=== PATIENT | male | born 1970 | race Asian ===

== ENCOUNTER 2024-02-01 02:31 | Inpatient (IN) | payer SELFPAY ==
[2024-02-01] VITALS (10 sets, daily range): BP systolic 96–136; BP diastolic 60–80; PULSE 93–121; RESP 16–26; TEMP 96.4–100.2; O2SAT 99
[~2024-02-01] VITALS: Ht 157.5 cm; Wt 53.0 kg
[~2024-02-01 02:31] MED LIST: ATOR10TA PO; FLUC100T64 PO; FOLI1TAB27 PO; HYDR-3964 PO; LISI2.5T14 PO; MULT-25 PO; PANT40TA54 PO; VITC500T PO; ZINC220C11 PO
[2024-02-01] MEDS: LORazepam 2 mg/ml vial IM ONE (02:55)
[2024-02-01] MEDS: haloperidol lactate 5mg/ml inj IM ONE (02:56)
[2024-02-01] MEDS: ceFAZolin 1gm IM kit IM ONE (02:58)
[2024-02-01] MEDS: TETanus/Pertussis (Acell)/Diphther VAC/PF (Tdap-Adult) 0.5ml syringe IMVAC ONE (03:01)
[2024-02-01 03:32] LABS: BASOPHILS # (AUTO) 0.1 X10'3 (0-0.2); MONOCYTES # (AUTO) 0.6 X10'3 (0-0.9)
[2024-02-01 03:34] LABS: BASOPHILS % (AUTO) 0.6 % (0-1); EOSINOPHILS % (AUTO) 0.2 % (0-6); LYMPHOCYTES # (AUTO) 2.3 X10'3 (1.1-4.8); LYMPHOCYTES % (AUTO) 19.3 % (21-51); MEAN CORPUSCULAR HEMOGLOBIN 19.4 PG (27.0-31.0); MEAN CORPUSCULAR VOLUME 62.5 FL (78-98); MONOCYTES % (AUTO) 5.4 % (2-12); NEUTROPHILS % (AUTO) 74.5 % (42-75); RED BLOOD COUNT 2.87 X10'6 (4.70-6.10); RED CELL DISTRIBUTION WIDTH 25.4 % (11.5-14.5); WHITE BLOOD COUNT 12.1 X10'3 (4.5-11.0)
[2024-02-01 04:04] LABS: HEMOGLOBIN 5.6 g/dl (14.0-17.9)
[2024-02-01 04:05] LABS: PLATELET COUNT 1275 X10'3 (140-440)
[2024-02-01 04:20] LABS: ALBUMIN 1.8 G/DL (3.4-5.0); ANION GAP 11 (8-16); BLOOD UREA NITROGEN 29 MG/DL (7-18); BUN/CREATININE RATIO 14.2 (10.0-20.0); CALCIUM 8.2 MG/DL (8.5-10.1); CHLORIDE 95 MMOL/L (99-107); CREATININE 2.04 MG/DL (0.60-1.10); ETHANOL < 10 MG/DL (<10); GLUCOSE 163 MG/DL (70-104); POTASSIUM 4.2 MMOL/L (3.5-5.1); SODIUM 129 MMOL/L (135-145); THYROID STIMULATING HORMONE 1.95 ulU/ml (0.34-4.50); TOTAL CARBON DIOXIDE 23.2 MMOL/L (24-32); eCRCL 31 ML/MIN; eGFR 34 ML/MIN
[2024-02-01 05:09] LABS: BILIRUBIN,URINE NEGATIVE (Neg); CLARITY,URINE SLIGHTLY CLOUDY (Clear); COLOR,URINE YELLOW (Yellow); GLUCOSE, URINE NEGATIVE (Neg); KETONES,URINE TRACE mg/dl (Neg); LEUKOCYTE ESTERASE ,URINE NEGATIVE (Neg); NITRITES, URINE NEGATIVE (Neg); OCCULT BLOOD,URINE NEGATIVE (Neg); PH,URINE 5.5 (4.8-8.0); PROTEIN,URINE NEGATIVE (Neg); UROBILINOGEN,URINE 0.2 E.U/dL (0.2-1.0)
[2024-02-01] MEDS: VANCOMYCIN 1,500MG inj. 1,500 MG in normal saline 500ml IV soln 300 ML IV SCH (05:10)
[2024-02-01] MEDS: LidoCAINE 2% Topical Jelly 11mL syringe (UROJET) TOP ONE (05:11)
[2024-02-01 05:14] LABS: UA COLLECTION TYPE FOLEY CATH
[2024-02-01 05:15] LABS: HYALINE CASTS 0-3 /LPF (NEGATIVE); SQUAMOUS EPITHELIAL CELL,UR FEW /LPF (FEW)
[2024-02-01 05:16] LABS: BACTERIA,URINE 2+ /HPF (Neg); RBC,URINE NONE SEEN /HPF (0-2); WBC,URINE 0-4 /HPF (0-4)
[2024-02-01 05:25] LABS: URINE AMPHETAMINE SCREEN POSITIVE (Neg); URINE BARBITUATE SCREEN NEGATIVE (Neg); URINE BENZODIAZEPINES SCREEN NEGATIVE (Neg); URINE CANNABINOID SCREEN NEGATIVE (Neg); URINE COCAINE SCREEN NEGATIVE (Neg); URINE METHADONE SCREEN NEGATIVE (Neg); URINE OPIATE SCREEN NEGATIVE (Neg); URINE PHENCYCLIDINE SCREEN NEGATIVE (Neg)
[2024-02-01] MEDS ORDERED: magnesium 4gm in 100ml NS 100 ML IV PRN (08:50)
[2024-02-01] MEDS ORDERED: magnesium hydroxide 30ml (MOM) UD suspension PO PRN (08:50)
[2024-02-01] MEDS ORDERED: ondansetron/PF 4mg/2ml inj IV PRN (08:50)
[2024-02-01] MEDS ORDERED: morphine 2 MG/ML inj. syringe IV PRN ×2 (08:50)
[2024-02-01] MEDS ORDERED: potassium Cl 20 mEq SR tablet PO PRN ×2 (08:50)
[2024-02-01] MEDS ORDERED: mag hydrox/Alum hydrox/simeth 30ml oral suspension PO PRN (08:50)
[2024-02-01] MEDS ORDERED: acetaminophen 325mg tablet PO PRN (08:50)
[2024-02-01] MEDS ORDERED: potassium Cl 40MEQ/1/2NS 520ml 520 ML IV PRN (08:50)
[2024-02-01] MEDS ORDERED: magnesium Cl slow-release 64mg tablet PO PRN (08:50)
[2024-02-01 11:13] LABS: MAGNESIUM 1.9 MG/DL (1.5-2.4)
[2024-02-01 13:41] LABS: HEMATOCRIT 23.5 % (42.0-52.0); HEMOGLOBIN 7.6 g/dl (14.0-17.9); MEAN CORPUSCULAR HEMOGLOBIN 22.1 PG (27.0-31.0); MEAN CORPUSCULAR HGB CONC 32.3 g/dL (33.0-36.5); MEAN CORPUSCULAR VOLUME 68.3 FL (78-98); MEAN PLATELET VOLUME 5.8 FL (7.4-10.4); RED BLOOD COUNT 3.44 X10'6 (4.70-6.10); RED CELL DISTRIBUTION WIDTH 26.6 % (11.5-14.5); WHITE BLOOD COUNT 16.5 X10'3 (4.5-11.0)
[2024-02-01 13:47] LABS: PLATELET COUNT 1100 X10'3 (140-440)
[2024-02-01] MEDS ORDERED: dextrose 50%-water 50ml dispensing syringe IV PRN ×2 (15:40)
[2024-02-01] MEDS ORDERED: DEXTROSE 15 GM of carb/4 tabs (each vial/BOTTLE has 4 tablets) PO PRN ×2 (15:40)
[2024-02-01] MEDS ORDERED: INSULIN LISPRO 100 UNIT/ML INSULN.PEN MULTI-DOSE SQ SCH (15:40)
[2024-02-01] MEDS ORDERED: glucagon, human recombinant 1mg kit SUBCUT PRN (15:40)
[2024-02-01] MEDS: normal saline 1000ml 1,000 ML IV SCH (16:21)
[2024-02-01] MEDS: MESSAGE TO PHARMACY PO ONE (16:25)
[2024-02-01 19:18] LABS: HEMOGLOBIN A1C 9.8 % (4.5-6.2)
[2024-02-01 19:30] LABS: HEMOGLOBIN 7.2 g/dl (14.0-17.9); MEAN PLATELET VOLUME 5.9 FL (7.4-10.4)
[2024-02-01 19:31] LABS: HEMATOCRIT 22.6 % (42.0-52.0); MEAN CORPUSCULAR HEMOGLOBIN 21.5 PG (27.0-31.0); MEAN CORPUSCULAR HGB CONC 31.7 g/dL (33.0-36.5); MEAN CORPUSCULAR VOLUME 67.8 FL (78-98); RED BLOOD COUNT 3.33 X10'6 (4.70-6.10); WHITE BLOOD COUNT 17.1 X10'3 (4.5-11.0)
[2024-02-01 19:43] LABS: PLATELET COUNT 1183 X10'3 (140-440)
[2024-02-01] MEDS: K and/or MAG REPLACEMENT MC SCH (20:00)
[2024-02-01] MEDS: docusate sod 100mg capsule PO SCH (20:00)
[2024-02-01] MEDS: insulin glargine (Lantus) pen - multi-dose SQ SCH (22:19)
[2024-02-01 22:27] LABS: HEMOGLOBIN 7.3 g/dl (14.0-17.9); MEAN CORPUSCULAR VOLUME 67.4 FL (78-98); MEAN PLATELET VOLUME 5.9 FL (7.4-10.4)
[2024-02-01 22:28] LABS: HEMATOCRIT 22.4 % (42.0-52.0); MEAN CORPUSCULAR HEMOGLOBIN 21.9 PG (27.0-31.0); MEAN CORPUSCULAR HGB CONC 32.5 g/dL (33.0-36.5); RED BLOOD COUNT 3.32 X10'6 (4.70-6.10); RED CELL DISTRIBUTION WIDTH 25.8 % (11.5-14.5); WHITE BLOOD COUNT 15.3 X10'3 (4.5-11.0)
[2024-02-01 22:33] LABS: PLATELET COUNT 1108 X10'3 (140-440)
[2024-02-02] VITALS (7 sets, daily range): BP systolic 104–134; BP diastolic 58–92; PULSE 90–103; RESP 14–17; TEMP 97.4–98.7; O2SAT 99–100
[2024-02-02 08:51] LABS: BASOPHILS # (AUTO) 0.1 X10'3 (0-0.2); BASOPHILS % (AUTO) 0.4 % (0-1); RED CELL DISTRIBUTION WIDTH 26.1 % (11.5-14.5)
[2024-02-02 08:53] LABS: EOSINOPHILS # (AUTO) 0.1 X10'3 (0-0.9); EOSINOPHILS % (AUTO) 0.5 % (0-6); LYMPHOCYTES # (AUTO) 1.8 X10'3 (1.1-4.8); LYMPHOCYTES % (AUTO) 13.4 % (21-51); MEAN CORPUSCULAR HEMOGLOBIN 22.2 PG (27.0-31.0); MEAN CORPUSCULAR HGB CONC 32.6 g/dL (33.0-36.5); MEAN CORPUSCULAR VOLUME 68.1 FL (78-98); MEAN PLATELET VOLUME 5.8 FL (7.4-10.4); MONOCYTES # (AUTO) 0.8 X10'3 (0-0.9); MONOCYTES % (AUTO) 6.3 % (2-12); NEUTROPHILS # (AUTO) 10.6 X10'3 (1.8-7.7); NEUTROPHILS % (AUTO) 79.4 % (42-75); RED BLOOD COUNT 3.09 X10'6 (4.70-6.10); WHITE BLOOD COUNT 13.4 X10'3 (4.5-11.0)
[2024-02-02 09:07] LABS: ALANINE AMINOTRANSFERASE 14 U/L (12-78); ALBUMIN 1.3 G/DL (3.4-5.0); ALBUMIN/GLOBULIN RATIO 0.3 (1.1-1.5); ALKALINE PHOSPHATASE 68 IU/L (46-116); ASPARTATE AMINO TRANSFERASE 10 U/L (10-37); BILIRUBIN,TOTAL 0.5 MG/DL (0.1-1.0); BLOOD UREA NITROGEN 16 MG/DL (7-18); BUN/CREATININE RATIO 12.3 (10.0-20.0); CALCIUM 7.9 MG/DL (8.5-10.1); CHLORIDE 105 MMOL/L (99-107); GLUCOSE 133 MG/DL (70-104); MAGNESIUM 1.6 MG/DL (1.5-2.4); TOTAL PROTEIN 6.5 G/DL (6.4-8.2); eCRCL 49 ML/MIN; eGFR 58 ML/MIN
[2024-02-02 09:09] LABS: HEMOGLOBIN 6.9 g/dl (14.0-17.9); PLATELET COUNT 1017 X10'3 (140-440)
[2024-02-02 09:13] LABS: ANION GAP 7 (8-16); POTASSIUM 4.1 MMOL/L (3.5-5.1); SODIUM 136 MMOL/L (135-145)
[2024-02-02 09:43] LABS: PLATELET ESTIMATE INCREASED
[2024-02-02 09:44] LABS: HYPOCHROMASIA 1+; POLYCHROMASIA FEW
[2024-02-02 09:45] LABS: ANISOCYTOSIS 3+; MICROCYTOSIS 2+; SCHISTOCYTES FEW; TARGET CELLS FEW
[2024-02-02] MEDS: acetaminophen 325mg tablet PO PRN (10:02)
[2024-02-02 11:29] LABS: HEMATOCRIT 23.2 % (42.0-52.0); HEMOGLOBIN 7.2 g/dl (14.0-17.9); MEAN CORPUSCULAR HEMOGLOBIN 21.4 PG (27.0-31.0); MEAN CORPUSCULAR HGB CONC 31.2 g/dL (33.0-36.5); MEAN CORPUSCULAR VOLUME 68.4 FL (78-98); MEAN PLATELET VOLUME 5.7 FL (7.4-10.4); PLATELET COUNT 974 X10'3 (140-440); RED BLOOD COUNT 3.38 X10'6 (4.70-6.10); RED CELL DISTRIBUTION WIDTH 26.1 % (11.5-14.5); WHITE BLOOD COUNT 14.4 X10'3 (4.5-11.0)
[2024-02-02 11:44] LABS: APTT 37 SECONDS (22-32); INR 1.1 INR; PROTHROMBIN TIME 11.9 SECONDS (9.0-12.0)
[2024-02-02] MEDS ORDERED: METF-1203 PO (12:55)
[2024-02-02 14:54] LABS: HEMATOCRIT 26.1 % (42.0-52.0); HEMOGLOBIN 8.3 g/dl (14.0-17.9); MEAN CORPUSCULAR HEMOGLOBIN 22.6 PG (27.0-31.0); MEAN CORPUSCULAR HGB CONC 31.9 g/dL (33.0-36.5); MEAN CORPUSCULAR VOLUME 70.9 FL (78-98); MEAN PLATELET VOLUME 5.7 FL (7.4-10.4); PLATELET COUNT 985 X10'3 (140-440); RED BLOOD COUNT 3.68 X10'6 (4.70-6.10); RED CELL DISTRIBUTION WIDTH 27.6 % (11.5-14.5); WHITE BLOOD COUNT 13.6 X10'3 (4.5-11.0)
[2024-02-02 19:27] LABS: HEMOGLOBIN 8.8 g/dl (14.0-17.9); MEAN CORPUSCULAR HGB CONC 32.3 g/dL (33.0-36.5); MEAN PLATELET VOLUME 5.9 FL (7.4-10.4)
[2024-02-02 19:28] LABS: HEMATOCRIT 27.3 % (42.0-52.0); MEAN CORPUSCULAR HEMOGLOBIN 22.8 PG (27.0-31.0); MEAN CORPUSCULAR VOLUME 70.6 FL (78-98); RED BLOOD COUNT 3.86 X10'6 (4.70-6.10); RED CELL DISTRIBUTION WIDTH 26.5 % (11.5-14.5); WHITE BLOOD COUNT 15.4 X10'3 (4.5-11.0)
[2024-02-02 19:35] LABS: PLATELET COUNT 1134 X10'3 (140-440)
[2024-02-02 21:31] LABS: OCCULT BLOOD STOOL NEGATIVE (Neg)
[2024-02-02 23:17] LABS: HEMOGLOBIN 8.6 g/dl (14.0-17.9)
[2024-02-02 23:18] LABS: MEAN CORPUSCULAR HEMOGLOBIN 23.3 PG (27.0-31.0); MEAN CORPUSCULAR HGB CONC 33.1 g/dL (33.0-36.5); MEAN CORPUSCULAR VOLUME 70.3 FL (78-98); MEAN PLATELET VOLUME 6.1 FL (7.4-10.4); RED CELL DISTRIBUTION WIDTH 26.5 % (11.5-14.5); WHITE BLOOD COUNT 14.9 X10'3 (4.5-11.0)
[2024-02-02 23:33] LABS: PLATELET COUNT 1028 X10'3 (140-440)
[2024-02-03 06:00] VITALS: BP 95/52; PULSE 104; RESP 15; TEMP 98.1; O2SAT 100
[2024-02-03 06:50] LABS: BASOPHILS # (AUTO) 0.1 X10'3 (0-0.2); BASOPHILS % (AUTO) 0.5 % (0-1); EOSINOPHILS # (AUTO) 0.1 X10'3 (0-0.9); EOSINOPHILS % (AUTO) 0.9 % (0-6); HEMOGLOBIN 8.3 g/dl (14.0-17.9); MEAN PLATELET VOLUME 5.7 FL (7.4-10.4); MONOCYTES # (AUTO) 0.6 X10'3 (0-0.9); MONOCYTES % (AUTO) 4.2 % (2-12)
[2024-02-03 06:53] LABS: HEMATOCRIT 25.1 % (42.0-52.0); LYMPHOCYTES # (AUTO) 3.4 X10'3 (1.1-4.8); LYMPHOCYTES % (AUTO) 24.8 % (21-51); MEAN CORPUSCULAR HEMOGLOBIN 23.3 PG (27.0-31.0); MEAN CORPUSCULAR VOLUME 70.7 FL (78-98); NEUTROPHILS # (AUTO) 9.4 X10'3 (1.8-7.7); NEUTROPHILS % (AUTO) 69.6 % (42-75); RED BLOOD COUNT 3.55 X10'6 (4.70-6.10); RED CELL DISTRIBUTION WIDTH 26.5 % (11.5-14.5); WHITE BLOOD COUNT 13.5 X10'3 (4.5-11.0)
[2024-02-03 07:08] LABS: ALANINE AMINOTRANSFERASE 11 U/L (12-78); ALBUMIN 1.5 G/DL (3.4-5.0); ALBUMIN/GLOBULIN RATIO 0.3 (1.1-1.5); ALKALINE PHOSPHATASE 81 IU/L (46-116); ANION GAP 7 (8-16); ASPARTATE AMINO TRANSFERASE 14 U/L (10-37); BILIRUBIN,TOTAL 0.3 MG/DL (0.1-1.0); BLOOD UREA NITROGEN 13 MG/DL (7-18); BUN/CREATININE RATIO 11.4 (10.0-20.0); C-REACTIVE PROTEIN 7.96 MG/DL (0.0-0.5); CALCIUM 7.8 MG/DL (8.5-10.1); CHLORIDE 103 MMOL/L (99-107); CREATININE 1.14 MG/DL (0.60-1.10); GLUCOSE 150 MG/DL (70-104); POTASSIUM 4.5 MMOL/L (3.5-5.1); SODIUM 134 MMOL/L (135-145); TOTAL CARBON DIOXIDE 24.1 MMOL/L (24-32); TOTAL PROTEIN 7.1 G/DL (6.4-8.2); eCRCL 56 ML/MIN; eGFR 67 ML/MIN
[2024-02-03 07:26] LABS: PLATELET COUNT 1038 X10'3 (140-440)
[2024-02-03 07:45] VITALS: RESP 18; O2SAT 100
[2024-02-03 07:46] LABS: PLATELET ESTIMATE INCREASED
[2024-02-03 07:49] LABS: ANISOCYTOSIS 3+
[2024-02-03 07:50] LABS: HYPOCHROMASIA 2+; MICROCYTOSIS 1+
[2024-02-03 07:51] LABS: BURR CELLS FEW; POLYCHROMASIA FEW
[2024-02-03 07:53] LABS: SCHISTOCYTES FEW
[2024-02-03 07:54] LABS: TARGET CELLS FEW
[2024-02-03] MEDS: HYDROcodone/acetaminophen 5mg/325mg tablet PO PRN (07:56)
[2024-02-03 07:57] LABS: ACANTHOCYTES FEW
[2024-02-03 09:15] LABS: PROTHROMBIN TIME 11.2 SECONDS (9.0-12.0)
[2024-02-03 09:33] LABS: APTT 38 SECONDS (22-32)
[2024-02-03 10:00] VITALS: BP 118/80; PULSE 101; RESP 18; TEMP 98.3; O2SAT 99
[2024-02-03] MEDS: JUVEN Smoothie Arginine/Glut./Ca2+Bmb (Juven 19.3pkt) 240ml cup PO SCH (12:30)
[2024-02-03 19:29] VITALS: RESP 18; O2SAT 100
[2024-02-03 19:44] VITALS: BP 109/80; PULSE 98; RESP 18; TEMP 98.3; O2SAT 100
[2024-02-03 22:25] VITALS: BP 129/85; PULSE 108; RESP 16; TEMP 98.5; O2SAT 97
[2024-02-04 06:00] VITALS: BP 115/61; PULSE 95; RESP 16; TEMP 97.9; O2SAT 96
[2024-02-04 06:54] LABS: BASOPHILS # (AUTO) 0.1 X10'3 (0-0.2); LYMPHOCYTES # (AUTO) 3.2 X10'3 (1.1-4.8); MEAN CORPUSCULAR HGB CONC 32.2 g/dL (33.0-36.5)
[2024-02-04 06:58] LABS: BASOPHILS % (AUTO) 0.7 % (0-1); EOSINOPHILS # (AUTO) 0.2 X10'3 (0-0.9); EOSINOPHILS % (AUTO) 1.8 % (0-6); LYMPHOCYTES % (AUTO) 32.3 % (21-51); MEAN CORPUSCULAR HEMOGLOBIN 22.8 PG (27.0-31.0); MEAN CORPUSCULAR VOLUME 70.9 FL (78-98); MEAN PLATELET VOLUME 5.8 FL (7.4-10.4); MONOCYTES # (AUTO) 0.6 X10'3 (0-0.9); MONOCYTES % (AUTO) 5.7 % (2-12); NEUTROPHILS # (AUTO) 5.9 X10'3 (1.8-7.7); NEUTROPHILS % (AUTO) 59.5 % (42-75); RED BLOOD COUNT 3.52 X10'6 (4.70-6.10); RED CELL DISTRIBUTION WIDTH 26.4 % (11.5-14.5); WHITE BLOOD COUNT 9.9 X10'3 (4.5-11.0)
[2024-02-04 07:06] LABS: PLATELET COUNT 1030 X10'3 (140-440)
[2024-02-04 07:26] LABS: ALANINE AMINOTRANSFERASE 13 U/L (12-78); ALBUMIN 1.4 G/DL (3.4-5.0); ALBUMIN/GLOBULIN RATIO 0.3 (1.1-1.5); ALKALINE PHOSPHATASE 73 IU/L (46-116); ANION GAP 6 (8-16); ASPARTATE AMINO TRANSFERASE 16 U/L (10-37); BILIRUBIN,TOTAL 0.3 MG/DL (0.1-1.0); BLOOD UREA NITROGEN 19 MG/DL (7-18); CALCIUM 7.9 MG/DL (8.5-10.1); CHLORIDE 103 MMOL/L (99-107); GLUCOSE 138 MG/DL (70-104); MAGNESIUM 1.4 MG/DL (1.5-2.4); POTASSIUM 4.7 MMOL/L (3.5-5.1); SODIUM 132 MMOL/L (135-145); TOTAL CARBON DIOXIDE 22.9 MMOL/L (24-32); TOTAL PROTEIN 6.9 G/DL (6.4-8.2); eCRCL 63 ML/MIN; eGFR 78 ML/MIN
[2024-02-04 08:00] VITALS: RESP 16; O2SAT 96
[2024-02-04] MEDS: magnesium 2GM in 50ml NS 50 ML IV PRN (08:06)
[2024-02-04] MEDS: HYDROcodone/acetaminophen 10/325mg tab PO PRN (09:12)
[2024-02-04] MEDS: insulin Lispro (HumaLOG) vial - multi-dose SQ SCH (09:16)
[2024-02-04 10:00] VITALS: BP 118/80; PULSE 101; RESP 18; TEMP 98.3; O2SAT 99
[2024-02-04 20:00] VITALS: RESP 18; O2SAT 90
[2024-02-04 22:00] VITALS: BP 111/66; PULSE 108; RESP 18; TEMP 97.8; O2SAT 90
[2024-02-05 06:00] VITALS: BP 116/70; PULSE 90; RESP 14; TEMP 98.3; O2SAT 98
[2024-02-05 08:00] VITALS: RESP 14; O2SAT 98
[2024-02-05 08:34] LABS: BASOPHILS # (AUTO) 0.1 X10'3 (0-0.2); EOSINOPHILS # (AUTO) 0.3 X10'3 (0-0.9); EOSINOPHILS % (AUTO) 2.5 % (0-6); HEMATOCRIT 24.5 % (42.0-52.0); LYMPHOCYTES # (AUTO) 3.1 X10'3 (1.1-4.8); LYMPHOCYTES % (AUTO) 30.7 % (21-51); MEAN CORPUSCULAR HEMOGLOBIN 23.2 PG (27.0-31.0); MEAN CORPUSCULAR HGB CONC 32.4 g/dL (33.0-36.5); MEAN CORPUSCULAR VOLUME 71.5 FL (78-98); MEAN PLATELET VOLUME 5.9 FL (7.4-10.4); MONOCYTES # (AUTO) 0.8 X10'3 (0-0.9); MONOCYTES % (AUTO) 8.3 % (2-12); NEUTROPHILS # (AUTO) 5.8 X10'3 (1.8-7.7); NEUTROPHILS % (AUTO) 57.5 % (42-75); PLATELET COUNT 940 X10'3 (140-440); RED BLOOD COUNT 3.43 X10'6 (4.70-6.10); RED CELL DISTRIBUTION WIDTH 27.4 % (11.5-14.5); WHITE BLOOD COUNT 10.2 X10'3 (4.5-11.0)
[2024-02-05 09:08] LABS: MAGNESIUM 1.5 MG/DL (1.5-2.4)
[2024-02-05 10:00] VITALS: BP 104/78; PULSE 102; RESP 17; TEMP 98.1; O2SAT 100
[2024-02-05 10:19] LABS: ANISOCYTOSIS 3+; BURR CELLS FEW; ELLIPTOCYTES FEW; HYPOCHROMASIA 2+; MICROCYTOSIS 1+; PLATELET ESTIMATE INCREASED
[2024-02-05 11:42] LABS: ALANINE AMINOTRANSFERASE 12 U/L (12-78); ALBUMIN 1.5 G/DL (3.4-5.0); ALBUMIN/GLOBULIN RATIO 0.3 (1.1-1.5); ALKALINE PHOSPHATASE 61 IU/L (46-116); ANION GAP 8 (8-16); ASPARTATE AMINO TRANSFERASE 13 U/L (10-37); BILIRUBIN,TOTAL 0.2 MG/DL (0.1-1.0); BLOOD UREA NITROGEN 36 MG/DL (7-18); BUN/CREATININE RATIO 28.3 (10.0-20.0); CALCIUM 8.3 MG/DL (8.5-10.1); CHLORIDE 106 MMOL/L (99-107); CREATININE 1.27 MG/DL (0.60-1.10); GLUCOSE 151 MG/DL (70-104); POTASSIUM 5.4 MMOL/L (3.5-5.1); SODIUM 135 MMOL/L (135-145); TOTAL CARBON DIOXIDE 20.6 MMOL/L (24-32); TOTAL PROTEIN 6.8 G/DL (6.4-8.2); eCRCL 50 ML/MIN; eGFR 59 ML/MIN
[2024-02-05 18:00] VITALS: BP 118/80; PULSE 84; RESP 14; TEMP 97.7; O2SAT 99
[2024-02-05 20:00] VITALS: RESP 16; O2SAT 97
[2024-02-05] MEDS: insulin glargine (Lantus) pen - multi-dose SQ SCH (21:23)
[2024-02-05] MEDS ORDERED: DEXTROSE 15 GM of carb/4 tabs (each vial/BOTTLE has 4 tablets) PO PRN (21:40)
[2024-02-05] MEDS ORDERED: glucagon, human recombinant 1mg kit SUBCUT PRN (21:40)
[2024-02-05] MEDS ORDERED: dextrose 50%-water 50ml dispensing syringe IV PRN ×2 (21:40)
[2024-02-05 22:00] VITALS: BP 120/69; PULSE 88; RESP 16; TEMP 98; O2SAT 97
[2024-02-05] MEDS: insulin Lispro (HumaLOG) vial - multi-dose SQ SCH (22:34)
[2024-02-06 06:26] VITALS: BP 131/58; PULSE 79; RESP 16; TEMP 98.4; O2SAT 100
[2024-02-06 07:26] LABS: BASOPHILS # (AUTO) 0.1 X10'3 (0-0.2); EOSINOPHILS # (AUTO) 0.2 X10'3 (0-0.9); HEMATOCRIT 26.4 % (42.0-52.0); LYMPHOCYTES # (AUTO) 3.3 X10'3 (1.1-4.8); NEUTROPHILS # (AUTO) 4.1 X10'3 (1.8-7.7)
[2024-02-06 07:30] LABS: BASOPHILS % (AUTO) 1.2 % (0-1); EOSINOPHILS % (AUTO) 1.9 % (0-6); HEMOGLOBIN 8.1 g/dl (14.0-17.9); LYMPHOCYTES % (AUTO) 39.3 % (21-51); MEAN CORPUSCULAR HEMOGLOBIN 22.1 PG (27.0-31.0); MEAN CORPUSCULAR HGB CONC 30.8 g/dL (33.0-36.5); MEAN CORPUSCULAR VOLUME 71.7 FL (78-98); MEAN PLATELET VOLUME 5.6 FL (7.4-10.4); MONOCYTES # (AUTO) 0.7 X10'3 (0-0.9); MONOCYTES % (AUTO) 8.9 % (2-12); NEUTROPHILS % (AUTO) 48.7 % (42-75); PLATELET COUNT 966 X10'3 (140-440); RED BLOOD COUNT 3.68 X10'6 (4.70-6.10); RED CELL DISTRIBUTION WIDTH 26.9 % (11.5-14.5); WHITE BLOOD COUNT 8.4 X10'3 (4.5-11.0)
[2024-02-06 07:36] LABS: ALANINE AMINOTRANSFERASE 15 U/L (12-78); ALBUMIN 1.5 G/DL (3.4-5.0); ALBUMIN/GLOBULIN RATIO 0.3 (1.1-1.5); ALKALINE PHOSPHATASE 67 IU/L (46-116); ANION GAP 6 (8-16); ASPARTATE AMINO TRANSFERASE 18 U/L (10-37); BILIRUBIN,TOTAL 0.3 MG/DL (0.1-1.0); BLOOD UREA NITROGEN 26 MG/DL (7-18); BUN/CREATININE RATIO 26.8 (10.0-20.0); CALCIUM 8.2 MG/DL (8.5-10.1); CHLORIDE 101 MMOL/L (99-107); CREATININE 0.97 MG/DL (0.60-1.10); GLUCOSE 91 MG/DL (70-104); POTASSIUM 4.3 MMOL/L (3.5-5.1); SODIUM 131 MMOL/L (135-145); TOTAL CARBON DIOXIDE 24.3 MMOL/L (24-32); TOTAL PROTEIN 7.5 G/DL (6.4-8.2); eCRCL 65 ML/MIN; eGFR 81 ML/MIN
[2024-02-06 08:00] VITALS: RESP 16; O2SAT 100
[2024-02-06 08:19] LABS: ANISOCYTOSIS 3+; MICROCYTOSIS 1+; PLATELET ESTIMATE INCREASED; POIKILOCYTOSIS FEW; TARGET CELLS 1+
[2024-02-06 10:00] VITALS: BP 95/54; PULSE 106; RESP 16; TEMP 97.3; O2SAT 100
[2024-02-06 18:00] VITALS: BP 96/61; PULSE 74; RESP 18; TEMP 98.6; O2SAT 96
[2024-02-06 20:00] VITALS: RESP 16; O2SAT 99
[2024-02-06 22:00] VITALS: BP 109/60; PULSE 109; RESP 16; TEMP 97; O2SAT 99
[2024-02-07 06:00] VITALS: BP 103/64; PULSE 98; RESP 16; TEMP 97.9; O2SAT 99
[2024-02-07 08:00] VITALS: RESP 16; O2SAT 96
[2024-02-07 08:15] LABS: ALANINE AMINOTRANSFERASE 19 U/L (12-78); ALBUMIN 1.6 G/DL (3.4-5.0); ALBUMIN/GLOBULIN RATIO 0.3 (1.1-1.5); ALKALINE PHOSPHATASE 67 IU/L (46-116); ANION GAP 8 (8-16); ASPARTATE AMINO TRANSFERASE 26 U/L (10-37); BILIRUBIN,TOTAL 0.2 MG/DL (0.1-1.0); BLOOD UREA NITROGEN 38 MG/DL (7-18); BUN/CREATININE RATIO 27.9 (10.0-20.0); CHLORIDE 99 MMOL/L (99-107); CREATININE 1.36 MG/DL (0.60-1.10); GLUCOSE 202 MG/DL (70-104); POTASSIUM 4.5 MMOL/L (3.5-5.1); SODIUM 132 MMOL/L (135-145); TOTAL CARBON DIOXIDE 25.5 MMOL/L (24-32); TOTAL PROTEIN 7.2 G/DL (6.4-8.2); eCRCL 47 ML/MIN; eGFR 55 ML/MIN
[2024-02-07 10:00] VITALS: BP 102/65; PULSE 99; RESP 18; TEMP 98.2; O2SAT 99
[2024-02-07] MEDS: DEXTROSE 15 GM of carb/4 tabs (each vial/BOTTLE has 4 tablets) PO PRN (11:25)
[2024-02-07 18:00] VITALS: BP 107/63; PULSE 104; RESP 18; TEMP 98.1; O2SAT 98
[2024-02-07 20:00] VITALS: RESP 18; O2SAT 98
[2024-02-07 22:00] VITALS: BP 108/75; PULSE 102; RESP 18; TEMP 98.4; O2SAT 100
[2024-02-08 06:00] VITALS: BP 111/72; PULSE 94; RESP 16; TEMP 98.6; O2SAT 100
[2024-02-08 07:27] LABS: ALANINE AMINOTRANSFERASE 16 U/L (12-78); ALBUMIN 1.7 G/DL (3.4-5.0); ALBUMIN/GLOBULIN RATIO 0.3 (1.1-1.5); ALKALINE PHOSPHATASE 66 IU/L (46-116); ANION GAP 7 (8-16); ASPARTATE AMINO TRANSFERASE 16 U/L (10-37); BILIRUBIN,TOTAL 0.2 MG/DL (0.1-1.0); BLOOD UREA NITROGEN 37 MG/DL (7-18); BUN/CREATININE RATIO 30.3 (10.0-20.0); CALCIUM 8.1 MG/DL (8.5-10.1); CHLORIDE 99 MMOL/L (99-107); CREATININE 1.22 MG/DL (0.60-1.10); GLUCOSE 217 MG/DL (70-104); POTASSIUM 4.4 MMOL/L (3.5-5.1); SODIUM 132 MMOL/L (135-145); TOTAL CARBON DIOXIDE 26.2 MMOL/L (24-32); TOTAL PROTEIN 7.6 G/DL (6.4-8.2); eCRCL 52 ML/MIN; eGFR 62 ML/MIN
[2024-02-08 08:13] LABS: BASOPHILS # (AUTO) 0.1 X10'3 (0-0.2); HEMATOCRIT 24.2 % (42.0-52.0); HEMOGLOBIN 7.8 g/dl (14.0-17.9); MEAN CORPUSCULAR HGB CONC 32.3 g/dL (33.0-36.5); WHITE BLOOD COUNT 8.5 X10'3 (4.5-11.0)
[2024-02-08 08:15] LABS: EOSINOPHILS # (AUTO) 0.2 X10'3 (0-0.9); EOSINOPHILS % (AUTO) 1.9 % (0-6); LYMPHOCYTES # (AUTO) 3.3 X10'3 (1.1-4.8); LYMPHOCYTES % (AUTO) 38.3 % (21-51); MEAN CORPUSCULAR HEMOGLOBIN 23.1 PG (27.0-31.0); MEAN CORPUSCULAR VOLUME 71.5 FL (78-98); MEAN PLATELET VOLUME 6.1 FL (7.4-10.4); MONOCYTES # (AUTO) 0.8 X10'3 (0-0.9); MONOCYTES % (AUTO) 9.9 % (2-12); NEUTROPHILS # (AUTO) 4.2 X10'3 (1.8-7.7); NEUTROPHILS % (AUTO) 48.9 % (42-75); PLATELET COUNT 879 X10'3 (140-440); RED BLOOD COUNT 3.39 X10'6 (4.70-6.10); RED CELL DISTRIBUTION WIDTH 27.1 % (11.5-14.5)
[2024-02-08 09:31] LABS: ANISOCYTOSIS 3+; BURR CELLS FEW; HYPOCHROMASIA 1+; MICROCYTOSIS 1+; PLATELET ESTIMATE INCREASED; TARGET CELLS FEW
[2024-02-08 10:00] VITALS: BP 100/72; PULSE 99; RESP 15; TEMP 98.1; O2SAT 99
== END 2024-02-08 15:15 | disposition home or self-care (01) | DRG 871 ==
LOC: ER 02:32 → ED HOLD 08:52 → EDBEDREQ 13:05 → ORTHO 4S 14:05
PROVIDERS: ADMIT Internal Medicine; ATTEND Internal Medicine
PROC: 30233N1 Transfusion of Nonautologous Red Blood Cells into Peripheral Vein, Percutaneous Approach (ICD-10-PCS; principal; 2024-02-01)
DX: A41.9 Sepsis, unspecified organism (principal); N17.0 Acute kidney failure with tubular necrosis; E87.1 Hypo-osmolality and hyponatremia; N39.0 Urinary tract infection, site not specified; L03.115 Cellulitis of right lower limb; L03.116 Cellulitis of left lower limb; D50.0 Iron deficiency anemia secondary to blood loss (chronic); Z20.822 Contact with and (suspected) exposure to COVID-19; E11.9 Type 2 diabetes mellitus without complications; F17.210 Nicotine dependence, cigarettes, uncomplicated; S81.802A Unspecified open wound, left lower leg, initial encounter; X58.XXXA Exposure to other specified factors, initial encounter; S81.801A Unspecified open wound, right lower leg, initial encounter; Y93.89 Activity, other specified; Y92.89 Other specified places as the place of occurrence of the external cause; Z79.899 Other long term (current) drug therapy; Y99.8 Other external cause status; Z83.3 Family history of diabetes mellitus
CPT/HCPCS: 36415; 36430; 71045; 80048; 80053; 80305; 80320; 81001; 82272; 82948; 83036; 83605; 83735; 84145; 84443; 85008; 85025; 85027; 85610; 85730; 85732; 86140; 86885; 86900; 86901; 86920; 87040; 87081; 87088; 87811; 90715; 93925; 93970; 96365; 96372; 97116; 97161; 97530; 99285; A6212; A6223; A6253; A6446; A6449; C1758; G0378; J0690; J1630; J1815; J2060; J3370; J3475; J7030; J7040; P9016

== ENCOUNTER 2024-03-13 16:08 | Inpatient (IN) | payer MEDICAID ==
[~2024-03-13] VITALS: Ht 172.7 cm; Wt 75.0 kg
[~2024-03-13 16:08] MED LIST changes: +METF-1203 PO; -VITC500T PO; -ZINC220C11 PO
[2024-03-13] MEDS: piperacillin/tazo 3.375gm/50ml 50 ML IV ONE (18:09)
[2024-03-13] MEDS: normal saline 1000ML IV soln IVB ONE (18:09)
[2024-03-13] MEDS: ondansetron 4mg rapidly disintigrating tab PO ONE (18:09)
[2024-03-13 18:49] LABS: PROTHROMBIN TIME 10.9 SECONDS (9.0-12.0)
[2024-03-13 18:52] LABS: SALICYLATE 0.5 MG/DL (4.0-20.0)
[2024-03-13 18:54] LABS: ACETAMINOPHEN < 2.0 UG/ML (10-30)
[2024-03-13] MEDS: vancomycin/NS 1 GM ADD-VANTAGE 250 ML IV ONE (19:05)
[2024-03-13 19:10] LABS: BASOPHILS # (AUTO) 0.1 X10'3 (0-0.2); MEAN PLATELET VOLUME 6.1 FL (7.4-10.4)
[2024-03-13 19:11] LABS: BASOPHILS % (AUTO) 0.5 % (0-1); EOSINOPHILS # (AUTO) 0.3 X10'3 (0-0.9); LYMPHOCYTES # (AUTO) 4.1 X10'3 (1.1-4.8); LYMPHOCYTES % (AUTO) 30.5 % (21-51); MEAN CORPUSCULAR HEMOGLOBIN 21.8 PG (27.0-31.0); MEAN CORPUSCULAR HGB CONC 30.2 g/dL (33.0-36.5); MEAN CORPUSCULAR VOLUME 71.9 FL (78-98); MONOCYTES # (AUTO) 0.9 X10'3 (0-0.9); MONOCYTES % (AUTO) 6.6 % (2-12); NEUTROPHILS # (AUTO) 8.1 X10'3 (1.8-7.7); NEUTROPHILS % (AUTO) 60.4 % (42-75); RED BLOOD COUNT 2.06 X10'6 (4.70-6.10); RED CELL DISTRIBUTION WIDTH 21.7 % (11.5-14.5); WHITE BLOOD COUNT 13.4 X10'3 (4.5-11.0)
[2024-03-13 19:14] LABS: HEMOGLOBIN 4.5 g/dl (14.0-17.9)
[2024-03-13 19:15] LABS: HEMATOCRIT 14.8 % (42.0-52.0); PLATELET COUNT 1014 X10'3 (140-440)
[2024-03-13 19:19] LABS: ALANINE AMINOTRANSFERASE 8 U/L (12-78); ALBUMIN 2.3 G/DL (3.4-5.0); ALBUMIN/GLOBULIN RATIO 0.4 (1.1-1.5); ALKALINE PHOSPHATASE 76 IU/L (46-116); ANION GAP 12 (8-16); ASPARTATE AMINO TRANSFERASE 5 U/L (10-37); BILIRUBIN,TOTAL 0.2 MG/DL (0.1-1.0); BLOOD UREA NITROGEN 23 MG/DL (7-18); CALCIUM 8.7 MG/DL (8.5-10.1); CHLORIDE 106 MMOL/L (99-107); CREATININE 1.21 MG/DL (0.60-1.10); GLUCOSE 187 MG/DL (70-104); POTASSIUM 4.8 MMOL/L (3.5-5.1); SODIUM 137 MMOL/L (135-145); TOTAL CARBON DIOXIDE 19.5 MMOL/L (24-32); TOTAL PROTEIN 8.4 G/DL (6.4-8.2); eCRCL 68 ML/MIN; eGFR 62 ML/MIN
[2024-03-13 19:20] LABS: ETHANOL < 10 MG/DL (<10); MAGNESIUM 1.5 MG/DL (1.5-2.4)
[2024-03-13 19:36] LABS: BILIRUBIN,DIRECT 0.1 MG/DL (0-0.3)
[2024-03-13] MEDS ORDERED: magnesium 4gm in 100ml NS 100 ML IV PRN (20:10)
[2024-03-13] MEDS ORDERED: magnesium 2GM in 50ml NS 50 ML IV PRN (20:10)
[2024-03-13] MEDS ORDERED: magnesium hydroxide 30ml (MOM) UD suspension PO PRN (20:10)
[2024-03-13] MEDS ORDERED: magnesium Cl slow-release 64mg tablet PO PRN (20:10)
[2024-03-13] MEDS ORDERED: mag hydrox/Alum hydrox/simeth 30ml oral suspension PO PRN (20:10)
[2024-03-13] MEDS ORDERED: acetaminophen 325mg tablet PO PRN (20:10)
[2024-03-13] MEDS ORDERED: morphine 2 MG/ML inj. syringe IV PRN (20:10)
[2024-03-13] MEDS ORDERED: potassium Cl 40MEQ/1/2NS 520ml 520 ML IV PRN (20:10)
[2024-03-13] MEDS: normal saline 1000ml 1,000 ML IV SCH (20:10)
[2024-03-13] MEDS ORDERED: potassium Cl 20 mEq SR tablet PO PRN ×2 (20:10)
[2024-03-13 20:26] LABS: TOTAL CELLS COUNTED 100
[2024-03-13 20:44] LABS: RED BLOOD COUNT 2.18 X10'6 (4.70-6.10); RETICULOCYTE % (AUTO) 2.7 % (0.5-1.5)
[2024-03-13 20:47] LABS: ANISOCYTOSIS 3+; HYPOCHROMASIA 2+; MICROCYTOSIS 1+; PLATELET ESTIMATE INCREASED; TARGET CELLS FEW
[2024-03-13 20:48] LABS: BURR CELLS FEW; ROULEAUX 1+; SCHISTOCYTES FEW
[2024-03-13 20:50] LABS: OCCULT BLOOD STOOL NEGATIVE (Neg)
[2024-03-13 21:05] LABS: % IRON SATURATION 3 % (11-46); IRON 9 UG/DL (53-167); TOTAL IRON BINDING CAPACITY 280 UG/DL (259-388)
[2024-03-13 21:07] LABS: FERRITIN 35 NG/ML (26-388); PHOSPHORUS 3.9 MG/DL (2.3-4.5)
[2024-03-13] MEDS ORDERED: DEXTROSE 15 GM of carb/4 tabs (each vial/BOTTLE has 4 tablets) PO PRN ×2 (21:10)
[2024-03-13] MEDS ORDERED: glucagon, human recombinant 1mg kit SUBCUT PRN (21:10)
[2024-03-13] MEDS ORDERED: dextrose 50%-water 50ml dispensing syringe IV PRN (21:10)
[2024-03-13 21:22] LABS: C-REACTIVE PROTEIN 6.81 MG/DL (0.0-0.5)
[2024-03-13 22:24] LABS: BILIRUBIN,URINE NEGATIVE (Neg); CLARITY,URINE CLEAR (Clear); COLOR,URINE YELLOW (Yellow); GLUCOSE, URINE 100 mg/dl (Neg); KETONES,URINE NEGATIVE (Neg); LEUKOCYTE ESTERASE ,URINE NEGATIVE (Neg); NITRITES, URINE NEGATIVE (Neg); OCCULT BLOOD,URINE NEGATIVE (Neg); PH,URINE 5.5 (4.8-8.0); PROTEIN,URINE TRACE mg/dl (Neg); UROBILINOGEN,URINE 0.2 E.U/dL (0.2-1.0)
[2024-03-13 22:49] LABS: URINE AMPHETAMINE SCREEN POSITIVE (Neg); URINE BARBITUATE SCREEN NEGATIVE (Neg); URINE BENZODIAZEPINES SCREEN NEGATIVE (Neg); URINE CANNABINOID SCREEN NEGATIVE (Neg); URINE COCAINE SCREEN NEGATIVE (Neg); URINE METHADONE SCREEN NEGATIVE (Neg); URINE OPIATE SCREEN NEGATIVE (Neg); URINE PHENCYCLIDINE SCREEN NEGATIVE (Neg)
[2024-03-13 22:57] LABS: UA COLLECTION TYPE URINAL
[2024-03-13 23:03] LABS: BACTERIA,URINE FEW /HPF (Neg); RBC,URINE 0-2 /HPF (0-2); SQUAMOUS EPITHELIAL CELL,UR FEW /LPF (FEW); URIC ACID CRYSTALS 4+ /HPF (NEGATIVE); WBC,URINE 0-4 /HPF (0-4)
[2024-03-13 23:45] VITALS: BP 116/89; PULSE 100; RESP 21; TEMP 98.2; O2SAT 100
[2024-03-14] VITALS (13 sets, daily range): BP systolic 92–130; BP diastolic 43–82; PULSE 71–103; RESP 15–19; TEMP 98–99.8; O2SAT 94–100
[2024-03-14] MEDS: HYDROcodone/acetaminophen 10/325mg tab PO PRN (01:04)
[2024-03-14] MEDS: piperacillin/tazo 3.375gm/50ml 50 ML IV SCH (04:21)
[2024-03-14 06:10] LABS: MEAN PLATELET VOLUME 6.2 FL (7.4-10.4); WHITE BLOOD COUNT 11.8 X10'3 (4.5-11.0)
[2024-03-14 06:14] LABS: BASOPHILS # (AUTO) 0.1 X10'3 (0-0.2); BASOPHILS % (AUTO) 0.6 % (0-1); EOSINOPHILS # (AUTO) 0.4 X10'3 (0-0.9); EOSINOPHILS % (AUTO) 3.1 % (0-6); LYMPHOCYTES # (AUTO) 3.3 X10'3 (1.1-4.8); LYMPHOCYTES % (AUTO) 27.7 % (21-51); MEAN CORPUSCULAR HEMOGLOBIN 24.4 PG (27.0-31.0); MEAN CORPUSCULAR HGB CONC 31.9 g/dL (33.0-36.5); MEAN CORPUSCULAR VOLUME 76.5 FL (78-98); MONOCYTES # (AUTO) 0.9 X10'3 (0-0.9); MONOCYTES % (AUTO) 7.7 % (2-12); NEUTROPHILS # (AUTO) 7.2 X10'3 (1.8-7.7); NEUTROPHILS % (AUTO) 60.9 % (42-75); PLATELET COUNT 754 X10'3 (140-440); RED BLOOD COUNT 2.63 X10'6 (4.70-6.10); RED CELL DISTRIBUTION WIDTH 22.9 % (11.5-14.5)
[2024-03-14 06:36] LABS: ALBUMIN 1.9 G/DL (3.4-5.0); ANION GAP 9 (8-16); BLOOD UREA NITROGEN 24 MG/DL (7-18); BUN/CREATININE RATIO 18.5 (10.0-20.0); CALCIUM 8.1 MG/DL (8.5-10.1); CHLORIDE 109 MMOL/L (99-107); GLUCOSE 174 MG/DL (70-104); POTASSIUM 4.8 MMOL/L (3.5-5.1); SODIUM 138 MMOL/L (135-145); TOTAL CARBON DIOXIDE 20.4 MMOL/L (24-32); eCRCL 63 ML/MIN; eGFR 58 ML/MIN
[2024-03-14 06:40] LABS: HEMATOCRIT 20.1 % (42.0-52.0); HEMOGLOBIN 6.4 g/dl (14.0-17.9)
[2024-03-14] MEDS: INSULIN LISPRO 100 UNIT/ML INSULN.PEN MULTI-DOSE SQ SCH ×2 (07:00→09:04)
[2024-03-14] MEDS: vancomycin/NS 1 GM ADD-VANTAGE 250 ML IV SCH (07:28)
[2024-03-14] MEDS: K and/or MAG REPLACEMENT MC SCH (07:39)
[2024-03-14 08:43] LABS: ANISOCYTOSIS 3+; HYPOCHROMASIA 1+; MICROCYTOSIS 1+; NUCLEATED RED BLOOD CELLS 1 /100WBC (0-0); PLATELET ESTIMATE INCREASED; TOTAL CELLS COUNTED 100
[2024-03-14 08:44] LABS: POLYCHROMASIA FEW; SCHISTOCYTES FEW
[2024-03-14 09:57] LABS: APTT 32 SECONDS (22-32)
[2024-03-14] MEDS: lactose-reduced food (Ensure High Protein) 237ml bottle PO SCH (12:47)
[2024-03-14] MEDS: JUVEN Smoothie Arginine/Glut./Ca2+Bmb (Juven 19.3pkt) 240ml cup PO SCH (18:03)
[2024-03-14 22:31] LABS: MEAN CORPUSCULAR HGB CONC 31.8 g/dL (33.0-36.5); MEAN CORPUSCULAR VOLUME 75.4 FL (78-98); MEAN PLATELET VOLUME 6.3 FL (7.4-10.4); PLATELET COUNT 787 X10'3 (140-440); RED BLOOD COUNT 2.63 X10'6 (4.70-6.10); WHITE BLOOD COUNT 11.3 X10'3 (4.5-11.0)
[2024-03-14 22:39] LABS: HEMATOCRIT 19.8 % (42.0-52.0); HEMOGLOBIN 6.3 g/dl (14.0-17.9)
[2024-03-15] VITALS (9 sets, daily range): BP systolic 106–116; BP diastolic 62–78; PULSE 80–88; RESP 14–23; TEMP 97.2–99.4; O2SAT 88–100
[2024-03-15 04:14] LABS: BASOPHILS # (AUTO) 0.2 X10'3 (0-0.2); EOSINOPHILS # (AUTO) 0.4 X10'3 (0-0.9); MEAN PLATELET VOLUME 6.2 FL (7.4-10.4); WHITE BLOOD COUNT 9.3 X10'3 (4.5-11.0)
[2024-03-15 04:15] LABS: BASOPHILS % (AUTO) 1.9 % (0-1); EOSINOPHILS % (AUTO) 4.8 % (0-6); HEMATOCRIT 22.3 % (42.0-52.0); HEMOGLOBIN 7.2 g/dl (14.0-17.9); LYMPHOCYTES # (AUTO) 3.5 X10'3 (1.1-4.8); LYMPHOCYTES % (AUTO) 37.2 % (21-51); MEAN CORPUSCULAR HEMOGLOBIN 24.7 PG (27.0-31.0); MEAN CORPUSCULAR HGB CONC 32.1 g/dL (33.0-36.5); MONOCYTES # (AUTO) 0.6 X10'3 (0-0.9); MONOCYTES % (AUTO) 6.2 % (2-12); NEUTROPHILS # (AUTO) 4.6 X10'3 (1.8-7.7); NEUTROPHILS % (AUTO) 49.9 % (42-75); PLATELET COUNT 751 X10'3 (140-440); RED CELL DISTRIBUTION WIDTH 22.7 % (11.5-14.5)
[2024-03-15 04:19] LABS: ALBUMIN 1.8 G/DL (3.4-5.0); ANION GAP 7 (8-16); BLOOD UREA NITROGEN 16 MG/DL (7-18); CALCIUM 8.2 MG/DL (8.5-10.1); CHLORIDE 108 MMOL/L (99-107); CREATININE 1.33 MG/DL (0.60-1.10); GLUCOSE 138 MG/DL (70-104); SODIUM 137 MMOL/L (135-145); TOTAL CARBON DIOXIDE 21.8 MMOL/L (24-32); eCRCL 61 ML/MIN; eGFR 56 ML/MIN
[2024-03-15] MEDS: morphine 2 MG/ML inj. syringe IV PRN (04:38)
[2024-03-15 04:50] LABS: ROULEAUX 1+
[2024-03-15 05:01] LABS: TOTAL CELLS COUNTED 100
[2024-03-15 05:02] LABS: ANISOCYTOSIS 3+; MICROCYTOSIS 1+; PLATELET ESTIMATE INCREASED
[2024-03-15 05:03] LABS: ROULEAUX 1+; SCHISTOCYTES FEW; TARGET CELLS FEW
[2024-03-15 05:04] LABS: HYPOCHROMASIA 1+
[2024-03-15] MEDS: VANCOMYCIN LEVEL IV ONE (06:38)
[2024-03-15] MEDS: nicotine 14mg patch - 24hr TD SCH (08:06)
[2024-03-15] MEDS: sodium ferric gluc complex inj 125 MG in normal saline 100ml IV soln 100 ML IV SCH (09:35)
[2024-03-15] MEDS: VANCOMYCIN 750MG IV in NS 250 ML IV SCH (18:22)
[2024-03-15] MEDS: insulin glargine (Lantus) pen - multi-dose SQ SCH (20:20)
[2024-03-16] VITALS (11 sets, daily range): BP systolic 102–148; BP diastolic 72–90; PULSE 67–97; RESP 16–24; TEMP 96.9–98.7; O2SAT 90–99
[2024-03-16 06:54] LABS: BASOPHILS # (AUTO) 0.1 X10'3 (0-0.2); EOSINOPHILS # (AUTO) 0.5 X10'3 (0-0.9); EOSINOPHILS % (AUTO) 5.3 % (0-6); LYMPHOCYTES # (AUTO) 3.7 X10'3 (1.1-4.8); MEAN PLATELET VOLUME 6.1 FL (7.4-10.4); WHITE BLOOD COUNT 9.4 X10'3 (4.5-11.0)
[2024-03-16 06:57] LABS: BASOPHILS % (AUTO) 0.9 % (0-1); LYMPHOCYTES % (AUTO) 39.4 % (21-51); MEAN CORPUSCULAR HEMOGLOBIN 24.9 PG (27.0-31.0); MEAN CORPUSCULAR HGB CONC 32.2 g/dL (33.0-36.5); MEAN CORPUSCULAR VOLUME 77.4 FL (78-98); MONOCYTES # (AUTO) 0.7 X10'3 (0-0.9); NEUTROPHILS # (AUTO) 4.4 X10'3 (1.8-7.7); NEUTROPHILS % (AUTO) 47.4 % (42-75); PLATELET COUNT 779 X10'3 (140-440); RED BLOOD COUNT 2.71 X10'6 (4.70-6.10); RED CELL DISTRIBUTION WIDTH 22.5 % (11.5-14.5)
[2024-03-16 07:00] LABS: ALBUMIN 1.7 G/DL (3.4-5.0); ANION GAP 6 (8-16); BLOOD UREA NITROGEN 21 MG/DL (7-18); BUN/CREATININE RATIO 16.9 (10.0-20.0); CALCIUM 7.9 MG/DL (8.5-10.1); CHLORIDE 108 MMOL/L (99-107); CREATININE 1.24 MG/DL (0.60-1.10); GLUCOSE 161 MG/DL (70-104); HEMOGLOBIN 6.8 g/dl (14.0-17.9); POTASSIUM 4.8 MMOL/L (3.5-5.1); SODIUM 138 MMOL/L (135-145); TOTAL CARBON DIOXIDE 24.1 MMOL/L (24-32); eCRCL 66 ML/MIN; eGFR 61 ML/MIN
[2024-03-16] MEDS: dextrose 50%-water 50ml dispensing syringe IV PRN (11:54)
[2024-03-16] MEDS: ascorbic acid 500mg tablet PO SCH (12:42)
[2024-03-16] MEDS: INSULIN LISPRO 100 UNIT/ML INSULN.PEN MULTI-DOSE SQ SCH (13:00)
[2024-03-16] MEDS: ondansetron/PF 4mg/2ml inj IV PRN (17:07)
[2024-03-16 17:57] LABS: MEAN CORPUSCULAR VOLUME 77.6 FL (78-98); WHITE BLOOD COUNT 12.3 X10'3 (4.5-11.0)
[2024-03-16 17:58] LABS: HEMATOCRIT 28.2 % (42.0-52.0); HEMOGLOBIN 9.3 g/dl (14.0-17.9); MEAN CORPUSCULAR HEMOGLOBIN 25.5 PG (27.0-31.0); MEAN CORPUSCULAR HGB CONC 32.9 g/dL (33.0-36.5); PLATELET COUNT 869 X10'3 (140-440); RED BLOOD COUNT 3.63 X10'6 (4.70-6.10); RED CELL DISTRIBUTION WIDTH 22.3 % (11.5-14.5)
[2024-03-17] MEDS: VANCOMYCIN LEVEL IV ONE (07:15)
[2024-03-17 07:37] LABS: ANION GAP 8 (8-16); BLOOD UREA NITROGEN 20 MG/DL (7-18); BUN/CREATININE RATIO 18.9 (10.0-20.0); CALCIUM 8.5 MG/DL (8.5-10.1); CHLORIDE 106 MMOL/L (99-107); CREATININE 1.06 MG/DL (0.60-1.10); GLUCOSE 121 MG/DL (70-104); POTASSIUM 4.4 MMOL/L (3.5-5.1); SODIUM 139 MMOL/L (135-145); TOTAL CARBON DIOXIDE 25.5 MMOL/L (24-32); eCRCL 77 ML/MIN; eGFR 73 ML/MIN
[2024-03-17 08:00] VITALS: RESP 20; O2SAT 95
[2024-03-17 08:06] LABS: VANCOMYCIN,TROUGH 25.9 ug/mL (10.0-20.0)
[2024-03-17 10:00] LABS: BASOPHILS # (AUTO) 0.1 X10'3 (0-0.2); BASOPHILS % (AUTO) 0.8 % (0-1); EOSINOPHILS # (AUTO) 0.5 X10'3 (0-0.9); LYMPHOCYTES # (AUTO) 3.2 X10'3 (1.1-4.8); MEAN PLATELET VOLUME 6.1 FL (7.4-10.4)
[2024-03-17 10:02] LABS: EOSINOPHILS % (AUTO) 4.9 % (0-6); HEMATOCRIT 27.8 % (42.0-52.0); HEMOGLOBIN 8.9 g/dl (14.0-17.9); LYMPHOCYTES % (AUTO) 29.5 % (21-51); MEAN CORPUSCULAR HEMOGLOBIN 25.3 PG (27.0-31.0); MEAN CORPUSCULAR HGB CONC 31.8 g/dL (33.0-36.5); MEAN CORPUSCULAR VOLUME 79.4 FL (78-98); MONOCYTES # (AUTO) 0.7 X10'3 (0-0.9); MONOCYTES % (AUTO) 6.9 % (2-12); NEUTROPHILS # (AUTO) 6.2 X10'3 (1.8-7.7); NEUTROPHILS % (AUTO) 57.9 % (42-75); PLATELET COUNT 821 X10'3 (140-440); RED CELL DISTRIBUTION WIDTH 23.3 % (11.5-14.5); WHITE BLOOD COUNT 10.7 X10'3 (4.5-11.0)
[2024-03-17 10:27] LABS: ANISOCYTOSIS 3+; HYPOCHROMASIA 1+; MICROCYTOSIS 1+; PLATELET ESTIMATE INCREASED
[2024-03-17 10:28] LABS: LARGE PLATELETS FEW
[2024-03-17 11:00] VITALS: BP 131/75; PULSE 86; RESP 11; O2SAT 100
[2024-03-17 15:00] VITALS: BP 119/69; PULSE 84; RESP 19; TEMP 99.8; O2SAT 100
[2024-03-17] MEDS: CefTRIAXone 2gm/D5W 50ml BAG 50 ML IV SCH (17:38)
[2024-03-17 18:00] VITALS: BP 119/69; PULSE 84; RESP 17; TEMP 98; O2SAT 100
[2024-03-17 20:00] VITALS: RESP 17; O2SAT 84
[2024-03-17] MEDS: metroNIDAZOLE 500mg tablet PO SCH (21:20)
[2024-03-17 22:00] VITALS: BP 125/72; PULSE 84; RESP 13; TEMP 98.1; O2SAT 99
[2024-03-18 02:00] VITALS: BP 142/86; PULSE 85; RESP 18; TEMP 98.2; O2SAT 97
[2024-03-18 06:00] VITALS: BP 123/79; PULSE 94; RESP 14; O2SAT 100
[2024-03-18 06:53] LABS: BASOPHILS # (AUTO) 0.1 X10'3 (0-0.2); MEAN PLATELET VOLUME 6.1 FL (7.4-10.4); MONOCYTES # (AUTO) 0.8 X10'3 (0-0.9)
[2024-03-18 06:55] LABS: BASOPHILS % (AUTO) 0.6 % (0-1); EOSINOPHILS # (AUTO) 0.3 X10'3 (0-0.9); EOSINOPHILS % (AUTO) 2.1 % (0-6); HEMATOCRIT 29.6 % (42.0-52.0); HEMOGLOBIN 9.6 g/dl (14.0-17.9); LYMPHOCYTES # (AUTO) 3.3 X10'3 (1.1-4.8); LYMPHOCYTES % (AUTO) 24.7 % (21-51); MEAN CORPUSCULAR HEMOGLOBIN 25.5 PG (27.0-31.0); MEAN CORPUSCULAR HGB CONC 32.3 g/dL (33.0-36.5); MEAN CORPUSCULAR VOLUME 78.9 FL (78-98); MONOCYTES % (AUTO) 6.1 % (2-12); NEUTROPHILS # (AUTO) 8.9 X10'3 (1.8-7.7); NEUTROPHILS % (AUTO) 66.5 % (42-75); PLATELET COUNT 849 X10'3 (140-440); RED BLOOD COUNT 3.75 X10'6 (4.70-6.10); RED CELL DISTRIBUTION WIDTH 24.2 % (11.5-14.5); WHITE BLOOD COUNT 13.3 X10'3 (4.5-11.0)
[2024-03-18 07:11] LABS: ALBUMIN 2.2 G/DL (3.4-5.0); ANION GAP 6 (8-16); BLOOD UREA NITROGEN 24 MG/DL (7-18); BUN/CREATININE RATIO 22.2 (10.0-20.0); CALCIUM 8.7 MG/DL (8.5-10.1); CHLORIDE 102 MMOL/L (99-107); CREATININE 1.08 MG/DL (0.60-1.10); GLUCOSE 137 MG/DL (70-104); POTASSIUM 4.7 MMOL/L (3.5-5.1); SODIUM 134 MMOL/L (135-145); TOTAL CARBON DIOXIDE 26.4 MMOL/L (24-32); eCRCL 76 ML/MIN; eGFR 71 ML/MIN
[2024-03-18 07:47] LABS: PLATELET ESTIMATE INCREASED
[2024-03-18 07:49] LABS: ANISOCYTOSIS 3+; MICROCYTOSIS 1+; POLYCHROMASIA 1+; ROULEAUX 2+; SCHISTOCYTES FEW; SPHEROCYTES FEW; TARGET CELLS FEW
[2024-03-18] MEDS: VANCOMYCIN 750MG IV in NS 250 ML IV SCH (08:59)
[2024-03-18 15:48] VITALS: BP 128/72; PULSE 85; RESP 13; TEMP 98.5; O2SAT 100
[2024-03-18 18:00] VITALS: BP 169/79; PULSE 94; RESP 15; TEMP 97.2; O2SAT 99
[2024-03-18 22:00] VITALS: BP 124/71; PULSE 95; RESP 14; TEMP 98.2; O2SAT 100
[2024-03-19 02:00] VITALS: BP 127/81; PULSE 63; RESP 12; TEMP 98.3; O2SAT 98
[2024-03-19 07:18] VITALS: BP 127/80; PULSE 91; RESP 20; TEMP 97.4; O2SAT 97
[2024-03-19 11:00] VITALS: BP 100/63; PULSE 93; RESP 16; TEMP 97.7; O2SAT 96
[2024-03-19 18:00] VITALS: BP 114/63; PULSE 96; RESP 19; TEMP 97.7; O2SAT 95
[2024-03-19 20:00] VITALS: RESP 19; O2SAT 95
[2024-03-19 22:00] VITALS: BP 104/56; PULSE 88; RESP 15; TEMP 99.2; O2SAT 99
[2024-03-20] VITALS (8 sets, daily range): BP systolic 104–115; BP diastolic 56–80; PULSE 61–88; RESP 14–18; TEMP 98–98.7; O2SAT 98–100
[2024-03-20] MEDS: VANCOMYCIN LEVEL IV ONE (06:30)
[2024-03-20 08:11] LABS: ALBUMIN 2.3 G/DL (3.4-5.0); ANION GAP 5 (8-16); BLOOD UREA NITROGEN 34 MG/DL (7-18); BUN/CREATININE RATIO 29.8 (10.0-20.0); CALCIUM 9.1 MG/DL (8.5-10.1); CHLORIDE 101 MMOL/L (99-107); CREATININE 1.14 MG/DL (0.60-1.10); GLUCOSE 206 MG/DL (70-104); POTASSIUM 4.6 MMOL/L (3.5-5.1); SODIUM 134 MMOL/L (135-145); VANCOMYCIN,TROUGH 7.3 ug/mL (10.0-20.0); eCRCL 72 ML/MIN; eGFR 67 ML/MIN
[2024-03-20 09:26] LABS: BASOPHILS % (AUTO) 0.3 % (0-1); HEMOGLOBIN 8.8 g/dl (14.0-17.9); MEAN CORPUSCULAR VOLUME 79.4 FL (78-98); MEAN PLATELET VOLUME 6.1 FL (7.4-10.4); NEUTROPHILS # (AUTO) 11.6 X10'3 (1.8-7.7)
[2024-03-20 09:28] LABS: EOSINOPHILS # (AUTO) 0.4 X10'3 (0-0.9); EOSINOPHILS % (AUTO) 2.5 % (0-6); LYMPHOCYTES % (AUTO) 18.4 % (21-51); MEAN CORPUSCULAR HEMOGLOBIN 25.8 PG (27.0-31.0); MEAN CORPUSCULAR HGB CONC 32.4 g/dL (33.0-36.5); MONOCYTES % (AUTO) 6.3 % (2-12); NEUTROPHILS % (AUTO) 72.5 % (42-75); PLATELET COUNT 820 X10'3 (140-440); RED CELL DISTRIBUTION WIDTH 25.6 % (11.5-14.5); WHITE BLOOD COUNT 16.1 X10'3 (4.5-11.0)
[2024-03-20 10:26] LABS: PLATELET ESTIMATE INCREASED; POLYCHROMASIA FEW
[2024-03-20 10:27] LABS: ACANTHOCYTES FEW; ANISOCYTOSIS 3+; ELLIPTOCYTES FEW; MICROCYTOSIS 1+; ROULEAUX 1+; TARGET CELLS FEW; TEAR DROP CELLS FEW
[2024-03-20] MEDS: enoxaparin 40mg/0.4ml syringe SUBCUT SCH (20:11)
[2024-03-21 03:30] VITALS: BP 120/79; PULSE 76; RESP 17; TEMP 98.7; O2SAT 100
[2024-03-21 06:00] VITALS: BP 116/80; PULSE 82; RESP 12; TEMP 98.4; O2SAT 99
[2024-03-21] MEDS: vancomycin/NS 1 GM ADD-VANTAGE 250 ML IV SCH (06:56)
[2024-03-21] MEDS: HYDROcodone/acetaminophen 5mg/325mg tablet PO PRN (06:56)
[2024-03-21 07:00] LABS: BASOPHILS # (AUTO) 0.1 X10'3 (0-0.2); EOSINOPHILS # (AUTO) 0.3 X10'3 (0-0.9); EOSINOPHILS % (AUTO) 2.6 % (0-6); HEMOGLOBIN 9.8 g/dl (14.0-17.9); MONOCYTES # (AUTO) 0.9 X10'3 (0-0.9)
[2024-03-21 07:02] LABS: BASOPHILS % (AUTO) 0.5 % (0-1); HEMATOCRIT 30.8 % (42.0-52.0); LYMPHOCYTES # (AUTO) 2.9 X10'3 (1.1-4.8); MEAN CORPUSCULAR HEMOGLOBIN 25.4 PG (27.0-31.0); MEAN CORPUSCULAR HGB CONC 31.9 g/dL (33.0-36.5); MEAN CORPUSCULAR VOLUME 79.7 FL (78-98); MEAN PLATELET VOLUME 6.3 FL (7.4-10.4); MONOCYTES % (AUTO) 7.4 % (2-12); NEUTROPHILS # (AUTO) 8.3 X10'3 (1.8-7.7); NEUTROPHILS % (AUTO) 66.5 % (42-75); PLATELET COUNT 860 X10'3 (140-440); RED BLOOD COUNT 3.86 X10'6 (4.70-6.10); RED CELL DISTRIBUTION WIDTH 25.2 % (11.5-14.5); WHITE BLOOD COUNT 12.4 X10'3 (4.5-11.0)
[2024-03-21 07:16] LABS: ALBUMIN 2.3 G/DL (3.4-5.0); ANION GAP 5 (8-16); BLOOD UREA NITROGEN 27 MG/DL (7-18); BUN/CREATININE RATIO 25.5 (10.0-20.0); CHLORIDE 100 MMOL/L (99-107); CREATININE 1.06 MG/DL (0.60-1.10); GLUCOSE 183 MG/DL (70-104); POTASSIUM 4.6 MMOL/L (3.5-5.1); SODIUM 131 MMOL/L (135-145); TOTAL CARBON DIOXIDE 25.6 MMOL/L (24-32); eCRCL 77 ML/MIN; eGFR 73 ML/MIN
[2024-03-21 08:00] VITALS: RESP 12; O2SAT 99
[2024-03-21 11:00] VITALS: BP 114/76; PULSE 85; RESP 16; TEMP 97.9; O2SAT 100
[2024-03-21 14:30] VITALS: RESP 16
[2024-03-24] MEDS ORDERED: VANCOMYCIN LEVEL IV ONE (06:30)
== END 2024-03-21 17:10 | DRG 720 ==
LOC: ER 16:10 → UNDOADMIN 20:09 → ED HOLD 20:09 → PCU 3S 23:49
PROVIDERS: ADMIT Internal Medicine; ATTEND Internal Medicine
PROC: 30233N1 Transfusion of Nonautologous Red Blood Cells into Peripheral Vein, Percutaneous Approach (ICD-10-PCS; principal; 2024-03-13)
DX: A41.9 Sepsis, unspecified organism (principal); E11.52 Type 2 diabetes mellitus with diabetic peripheral angiopathy with gangrene; N17.9 Acute kidney failure, unspecified; A48.0 Gas gangrene; R45.851 Suicidal ideations; F33.2 Major depressive disorder, recurrent severe without psychotic features; L97.919 Non-pressure chronic ulcer of unspecified part of right lower leg with unspecified severity; E11.69 Type 2 diabetes mellitus with other specified complication; D50.9 Iron deficiency anemia, unspecified; M86.8X7 Other osteomyelitis, ankle and foot; S91.301A Unspecified open wound, right foot, initial encounter; I10 Essential (primary) hypertension; F17.210 Nicotine dependence, cigarettes, uncomplicated; F43.10 Post-traumatic stress disorder, unspecified; D75.838 Other thrombocytosis; L97.929 Non-pressure chronic ulcer of unspecified part of left lower leg with unspecified severity; F19.10 Other psychoactive substance abuse, uncomplicated; F10.10 Alcohol abuse, uncomplicated; Z66 Do not resuscitate; E78.5 Hyperlipidemia, unspecified; S91.302A Unspecified open wound, left foot, initial encounter; X58.XXXA Exposure to other specified factors, initial encounter; Z59.02 Unsheltered homelessness; Z91.148 Patient's other noncompliance with medication regimen for other reason; Z79.84 Long term (current) use of oral hypoglycemic drugs; Z79.899 Other long term (current) drug therapy; Y93.89 Activity, other specified; Y92.89 Other specified places as the place of occurrence of the external cause; Y99.8 Other external cause status; Z83.3 Family history of diabetes mellitus
CPT/HCPCS: 36415; 36430; 71045; 73590; 73630; 73718; 80048; 80076; 80202; 80305; 80320; 80329; 81001; 82272; 82728; 82948; 83036; 83540; 83550; 83605; 83735; 84100; 84145; 85007; 85008; 85025; 85027; 85045; 85610; 85651; 85730; 86140; 86885; 86900; 86901; 86920; 87040; 87081; 93005; 97161; 97530; 99285; A6213; A6223; A6253; A6402; A6446; A6449; G0378; J0696; J1650; J1815; J2270; J2405; J2543; J2916; J3370; J3490; J7030; J7040; J7050; P9016